=== PATIENT | male | born 2000 | race Two or more races ===

== ENCOUNTER 2024-04-24 00:30 | Emergency (ER) | payer OTHER, SELFPAY ==
[2024-04-24 00:37] VITALS: BP 125/71
[2024-04-24 01:41] VITALS: BP 108/69
[2024-04-24 01:57] LABS: % Basophils 0.2 % (0-2); % Eosinophils 0.8 % (0-6); % Immature Granulocytes 0.3 % (0-0.5); % Lymphocytes 17.8 % (20.5-51.1); % Monocytes 4.4 % (1.7-9.3); % Neutrophils 76.5 % (42.2-75.2); Absolute Eosinophils 0.1 10^3/uL (0-0.7); Absolute Lymphocytes 1.1 10^3/uL (1.2-3.4); Absolute Monocytes 0.3 10^3/uL (0.1-0.6); Absolute Neutrophils 4.5 10^3/uL (1.4-6.5); Hematocrit 37.5 % (39.0-52.0); Hemoglobin 13.6 g/dL (13.0-18.0); Mean Corp Hgb Conc. 36.3 g/dL (33.0-37.0); Mean Corpuscular Hgb 30.2 pg (27.0-31.0); Mean Corpuscular Volume 83.3 fL (80.0-94.0); Mean Platelet Volume 10.4 fL (7.4-10.4); Nucleated Red Blood Cells % 0 % (-); Platelet Count 210 10^3/uL (130-400); Red Cell Dist. Width 11.9 % (11.5-14.5); White Blood Cell Count 5.9 10^3/uL (4.8-10.8)
[2024-04-24 01:59] VITALS: BMI 18.1
[2024-04-24 02:00] VITALS: BP 102/63
--- NOTE | 2024-04-24 02:01 | ED.GENMED ---
History of Present Illness
General
Chief Complaint: Fainting/Passed Out
Source: patient and family
Exam Limitations: none
Time Seen by Provider: 04/24/24 00:50
Nursing documentation reviewed up to this point in time: agreed with
Travel History
Have you had any contact with someone who has COVID-19?: No
Do you have any symptoms of coronavirus? Fever > 100 degrees, chills, cough, shortness of breath, sore throat, loss of taste or smell, muscle aches, or headache?: No
History of Present Illness
History of Present Illness:
23-year-old male presenting to the emergency department after an episode where he passed out. Claims that he was in an argument with a family member felt very lightheaded and passed out and hit the back of his head on the wall but was caught before
he fell to the ground further claims that he woke up after a minute or so and felt somewhat out of it for few minutes but otherwise feels back to normal at this point. He had some rhythmic shaking at the time as well. He this point denies any
chest pain shortness of breath nausea vomiting or additional concerns. Denies any similar symptoms in the past.
Review of Systems
Review of Systems
Allergies reviewed?: Yes
All Other Systems: ROS reviewed and negative except as documented in HPI and ROS
Phy Exam
Physical Exam
Physical Exam:
GENERAL: Alert , in no apparent distress
EYE: pupils equal and reactive
NECK: Supple, no significant adenopathy.
ENT: o/p clr, mmm.
CARDIAC: Regular rate and rhythm .
LUNGS: Clear breath sounds bilaterally, no acute respiratory distress, no wheezes/rales/rhonchi
ABDOMEN: Soft, without focal tenderness, no r/g, no cvat
NEUROLOGICAL: Alert and oriented, no focal neuro deficits 5 out of 5 upper and lower extremity strength normal sensation with palpating bilaterally normal finger-nose [id number] no pronator drift
SKIN: Warm and dry, skin intact.
MUSCULOSKELETAL: No edema, well perfused.
PSYCH: Normal and appropriate interaction.
Course
Orders/Labs/Results
Orders:
Orders
04/24/24 01:08
EKG [Electrocardiogram (*1)] Urgent
Reason for Study: Fatigue / Weakness
04/24/24 01:09
EKG- Treatment ONCE
04/24/24 01:43
Complete Blood Count/With Diff Urgent
Comprehensive Metabolic Panel Urgent
Abnormal Lab Results
04/24/24
01:43
RBC 4.50 L 10^6/uL
(4.70-6.10)
Hct 37.5 L %
(39.0-52.0)
Absolute Lymphs (auto) 1.1 L 10^3/uL
(1.2-3.4)
Neutrophils % 76.5 H %
(42.2-75.2)
Lymphocytes % 17.8 L %
(20.5-51.1)
04/24/24 01:43
04/24/24 01:43
Vital Signs
Initial and Last Documented VS:
Initial Vital Signs
Temp Pulse Resp BP Pulse Ox
98.3 F 70 15 125/71 100
04/24/24 00:37 04/24/24 00:37 04/24/24 00:37 04/24/24 00:37 04/24/24 00:37
Last Documented Vital Signs
Temp Pulse Resp BP Pulse Ox
98.3 F 70 15 125/71 100
04/24/24 00:37 04/24/24 00:37 04/24/24 00:37 04/24/24 00:37 04/24/24 00:37
MDM/Problems Addressed
MDM/Problems Addressed:
24-year-old male present emergency department today with concerns of passing out prior to arrival. It was immediately after emotionally charged conversation he claims that he felt very lightheaded and passed out he apparently was caught prior to
falling to the ground but did hit his head on the wall. After a few minutes he was fully alert and oriented. He denies any chest pain palpitations shortness of breath throughout. Normal vital signs here labs obtained and unremarkable EKG normal.
Normal physical examination normal neurologic evaluation. No signs of trauma.
*Critical Care Note
Total Time (30-74mins, 75-104mins- exclusive of procedures): Not Applicable
ED Attending Note
-
Portions of this chart may have been created with voice recognition software.� Occasional wrong word or��sound alike� substitutions may have occurred due to the inherent limitations of voice recognition software.
Discharge Plan
Departure
Patient Disposition: Home (Routine Discharge)
Date of Disposition: 04/24/24
Time of Disposition: 02:39
Patient with high blood pressure during this ER visit?: No
Condition: Good
Covid-19: Not Applicable
Discharge Problem:
Syncope
Instructions: Syncope (Fainting) (DC)
Referrals:
UNKNOWN - PT DOES,NOT KNOW [Family Provider] -
Activity Restrictions/Additional Instructions:
You came to the emergency department today after an episode where you lost consciousness. Here you had a reassuring assessment normal vital signs normal labs and normal EKG. This is very reassuring. Please follow closely with your primary care
doctor. Return to the emergency department for any worsening, new or concerning symptoms.
Interventions
Interventions:
*Risk Screen - Suicide Last Done: 04/24/24 00:37
*General Assessment Last Done: 04/24/24 00:37
*Neglect/Abuse Screening Last Done: 04/24/24 00:37
ED- Fall Risk Assessment Last Done: 04/24/24 00:37
*ED COVID-19 Vaccine History Last Done: 04/24/24 00:37
ED- Cardiac Assessment Last Done: 04/24/24 01:03
ED- Neurological Assessment Last Done: 04/24/24 01:03
Discharge Date and Time
Print Language: GUYANESE
[2024-04-24 02:10] LABS: ALT (SGPT) 13 U/L (0-50); AST (SGOT) 22 U/L (17-59); Albumin 4.7 g/dl (3.5-5.0); Alkaline Phosphatase 62 U/L (38-126); Blood Urea Nitrogen 17 mg/dl (9-20); Calcium 9.4 mg/dl (8.4-10.2); Carbon Dioxide 28 mmol/L (22-30); Chloride 104 mmol/L (98-107); Estimated Creatinine Clearance 101 ml/min; Glucose 92 mg/dl (70-99); Potassium 3.9 mmol/L (3.5-5.1); Sodium 141 mmol/L (135-145); Total Bilirubin 0.9 mg/dl (0.2-1.3); Total Protein 6.8 g/dl (6.3-8.2); eGFR > 60.00
[2024-04-24 02:30] VITALS: BP 101/67
[2024-04-24 03:00] VITALS: BP 105/72
== END 2024-04-24 03:34 | disposition home or self-care (01) ==
LOC: EMR 00:30
PROVIDERS: Physician Assistant; EMERGENCY PHYSICIAN Student in an Organized Health Care Education/Training Program
DX: R55 Syncope and collapse (principal); S09.90XA Unspecified injury of head, initial encounter; W19.XXXA Unspecified fall, initial encounter
CPT/HCPCS: 99284; 80053; 85025; 93005